=== PATIENT | female | born 1970 | race African-American/Black ===

== ENCOUNTER 2020-12-10 20:43 | Inpatient (IN) | payer BC ==
[2020-12-10] MEDS ORDERED: VALSARTAN 80 MG TABLET PO ONE (21:43)
[2020-12-10] MEDS ORDERED: NITROGLYCERIN SUBLINGUAL 1/150 0.4 MG TAB SL ONE (21:43)
[2020-12-10] MEDS ORDERED: HYDROCHLOROTHIAZIDE 50 MG TABLET PO ONE (21:43)
[2020-12-10 21:44] LABS: BASO % 0.4 % (0-2.0); EOS % 0.9 % (0-4.5); HEMATOCRIT 32.7 % (32.4-45.2); HEMOGLOBIN 10.9 GM/dL (10.7-15.3); LYMPH % 35.3 % (8-40); MCHC 33.3 g/dl (32.0-36.0); MEAN CELL VOLUME 87.1 fl (80-96); MEAN PLT VOLUME 9.1 fl (7.5-11.1); MONO % 10.7 % (3.8-10.2); NEUT % 52.7 % (42.8-82.8); PLATELET COUNT 284 10^3/uL (134-434); RBC 3.75 M/mm3 (3.60-5.2); RDW 15.7 % (11.6-15.6); WHITE BLOOD COUNT 7.1 K/mm3 (4.0-10.0)
[2020-12-10] MEDS ORDERED: HYDROCHLOROTHIAZIDE 25 MG TABLET (FP) ONE (21:48)
[2020-12-10] MEDS ORDERED: VALSARTAN 80 MG TABLET ONE (21:49)
[2020-12-10] MEDS ORDERED: NITROGLYCERIN SUBLINGUAL 1/150 0.4 MG TAB ONE (21:49)
[2020-12-10 21:52] LABS: INR 1.46 (0.83-1.09); PROTHROMBIN TIME (PATIENT) 17.5 SEC (9.7-13.0)
[2020-12-10 21:55] LABS: ACTIVATED PTT 23.6 SECONDS (25.2-36.5)
[2020-12-10 22:01] LABS: CALCIUM 8.7 mg/dL (8.5-10.1)
[2020-12-10 22:02] LABS: ALBUMIN 3.1 g/dl (3.4-5.0); BLOOD UREA NITROGEN 21.5 mg/dL (7-18)
[2020-12-10 22:05] LABS: CREATININE 1.3 mg/dL (0.55-1.3)
[2020-12-10 22:07] LABS: BILIRUBIN,TOTAL 0.8 mg/dL (0.2-1)
[2020-12-10 22:10] LABS: N-TERMINAL BNP 6707.7 pg/ml (5-125)
[2020-12-10] MEDS ORDERED: ASPIRIN 81 MG CHEWABLE TABLETS PO ONE (22:38)
[2020-12-10] MEDS ORDERED: ENOXAPARIN NA (PORCINE) 120 MG/0.8 ML DISP.SYRIN SQ SCH (22:45)
[2020-12-11] MEDS ORDERED: ASPIRIN 81 MG CHEWABLE TABLETS ONE (00:27)
[2020-12-11] MEDS ORDERED: ENOXAPARIN NA (PORCINE) 120 MG/0.8 ML DISP.SYRIN SQ ONE (00:30)
[2020-12-11 08:26] LABS: EPI CELLS 14 /uL (0-25.1); HYALINE CASTS 2 /uL (0-3.1); URINE APPEARANCE CLEAR; URINE BACTERIA 201 /uL (0-1359); URINE BILIRUBIN NEGATIVE (NEGATIVE); URINE COLOR YELLOW; URINE GLUCOSE (UA) NEGATIVE (NEGATIVE); URINE KETONE NEGATIVE (NEGATIVE); URINE LEUK ESTERASE NEGATIVE (NEGATIVE); URINE NITRITE NEGATIVE (NEGATIVE); URINE PROTEIN 3+ (NEGATIVE); URINE RBC 6 /uL (0-23.9); URINE UROBILINOGEN 0.2 mg/dL (0.2-1.0); URINE WBC 8 /uL (0-25.8)
[2020-12-11] MEDS ORDERED: FUROSEMIDE 40 MG/4 ML INJECTABLE VIAL ONE (09:01)
[2020-12-11] MEDS ORDERED: ENOXAPARIN NA (PORCINE) 120 MG/0.8 ML DISP.SYRIN SQ SCH ×2 (10:00→12:00)
[2020-12-11] MEDS ORDERED: FUROSEMIDE 40 MG/4 ML INJECTABLE VIAL IVPB SCH (10:00)
[2020-12-11] MEDS: FUROSEMIDE 40 MG/4 ML INJECTABLE VIAL IVPUSH SCH (10:05)
[2020-12-11 11:08] LABS: BASO % 0.7 % (0-2.0); EOS % 0.8 % (0-4.5); HEMATOCRIT 32.8 % (32.4-45.2); HEMOGLOBIN 10.9 GM/dL (10.7-15.3); LYMPH % 28.2 % (8-40); MCH 29.2 pg (25.7-33.7); MCHC 33.4 g/dl (32.0-36.0); MEAN CELL VOLUME 87.5 fl (80-96); MEAN PLT VOLUME 8.9 fl (7.5-11.1); MONO % 8.8 % (3.8-10.2); NEUT % 61.5 % (42.8-82.8); PLATELET COUNT 268 10^3/uL (134-434); RBC 3.75 M/mm3 (3.60-5.2); RDW 15.8 % (11.6-15.6); WHITE BLOOD COUNT 7.1 K/mm3 (4.0-10.0)
[2020-12-11] MEDS ORDERED: amLODIPine BESYLATE 5 MG TABLET (FP) PO SCH (11:30)
[2020-12-11 11:31] LABS: ALBUMIN 3.1 g/dl (3.4-5.0); CALCIUM 8.6 mg/dL (8.5-10.1)
[2020-12-11 11:32] LABS: BLOOD UREA NITROGEN 17.9 mg/dL (7-18); MAGNESIUM 1.9 mg/dL (1.8-2.4)
[2020-12-11 11:34] LABS: CREATININE 1.1 mg/dL (0.55-1.3); PHOSPHOROUS 4.5 mg/dL (2.5-4.9)
[2020-12-11] MEDS ORDERED: amLODIPine BESYLATE 5 MG TABLET (FP) ONE (13:41)
[2020-12-11] MEDS ORDERED: ENOXAPARIN NA (PORCINE) 40 MG/0.4 ML DISP.SYRIN SQ ONE (16:46)
[2020-12-11] MEDS ORDERED: ENOXAPARIN NA (PORCINE) 100 MG/1 ML DISP.SYRIN SQ ONE (17:00)
[2020-12-11] MEDS ORDERED: ENOXAPARIN NA (PORCINE) 60 MG/0.6 ML DISP.SYRIN SQ ONE (17:00)
[2020-12-11] MEDS: QUINAPRIL HCL 20 MG TABLET PO SCH (17:05)
[2020-12-11] MEDS: CHLORHEXIDINE GLUCONATE 4% CLEANSER FOR DECOLONIZATION TP SCH (21:09)
[2020-12-11] MEDS: MUPIROCIN 2% TOPICAL OINTMENT FOR DECOLONIZATION NS SCH (21:09)
[2020-12-11] MEDS ORDERED: LABETALOL HCL 5 MG/1 ML (100MG/20 ML VIAL) IVPUSH ONE ×2 (21:51→21:57)
[2020-12-12] MEDS ORDERED: QUINAPRIL HCL 20 MG TABLET PO ONE ×2 (00:23→20:06)
[2020-12-12 07:48] LABS: BASO % 0.5 % (0-2.0); EOS % 2.4 % (0-4.5); HEMATOCRIT 29.8 % (32.4-45.2); HEMOGLOBIN 9.9 GM/dL (10.7-15.3); LYMPH % 25.4 % (8-40); MCH 29.1 pg (25.7-33.7); MCHC 33.1 g/dl (32.0-36.0); MEAN PLT VOLUME 9.1 fl (7.5-11.1); MONO % 8.8 % (3.8-10.2); NEUT % 62.9 % (42.8-82.8); PLATELET COUNT 240 10^3/uL (134-434); RBC 3.39 M/mm3 (3.60-5.2); RDW 15.7 % (11.6-15.6)
[2020-12-12 07:59] LABS: INR 1.45 (0.83-1.09); PROTHROMBIN TIME (PATIENT) 17.6 SEC (9.7-13.0)
[2020-12-12 08:19] LABS: CALCIUM 8.2 mg/dL (8.5-10.1)
[2020-12-12 08:20] LABS: ALBUMIN 2.5 g/dl (3.4-5.0); BLOOD UREA NITROGEN 15.2 mg/dL (7-18); MAGNESIUM 1.7 mg/dL (1.8-2.4)
[2020-12-12 08:23] LABS: PHOSPHOROUS 4.2 mg/dL (2.5-4.9)
[2020-12-12 08:24] LABS: BILIRUBIN,TOTAL 0.9 mg/dL (0.2-1); TOT PROT 5.9 g/dl (6.4-8.2)
[2020-12-12] MEDS ORDERED: MAGNESIUM SULF 50% (8.12 MEQ/2 ML-1 GM VIAL) IVPB ONE (08:44)
[2020-12-12] MEDS ORDERED: KCL 10 MEQ IVPB 10 MEQ/100 ML INFUS.BAG IVPB SCH (09:00)
[2020-12-12] MEDS ORDERED: PT OWN MED DRAWER 7, Y5N ONE ×5 (09:17→23:17)
[2020-12-12] MEDS: MAGNESIUM OXIDE 400 MG TABLET (FP) PO SCH ×2 (09:37→23:05)
[2020-12-12] MEDS: POTASSIUM CHLORIDE TABS 20 MEQ TABLET.ER (FP) PO SCH ×2 (09:38→13:13)
[2020-12-12] MEDS: FUROSEMIDE 40 MG/4 ML INJECTABLE VIAL IVPUSH SCH (09:38)
[2020-12-12] MEDS: MUPIROCIN 2% TOPICAL OINTMENT FOR DECOLONIZATION NS SCH ×2 (09:39→23:05)
[2020-12-12] MEDS ORDERED: ENOXAPARIN NA (PORCINE) 120 MG/0.8 ML DISP.SYRIN SQ ONE ×2 (09:56→21:16)
[2020-12-12] MEDS ORDERED: ENOXAPARIN NA (PORCINE) 30 MG/0.3 ML DISP.SYRIN SQ ONE ×2 (09:57→21:16)
[2020-12-12] MEDS ORDERED: POTASSIUM CHLORIDE TABS 10 MEQ TABLET.ER (FP) PO SCH (10:00)
[2020-12-12] MEDS ORDERED: ENOXAPARIN NA (PORCINE) 120 MG/0.8 ML DISP.SYRIN SQ SCH (10:00)
[2020-12-12] MEDS: ENOXAPARIN 120 MG, ENOXAPARIN 30 MG SQ SCH ×2 (10:01→23:06)
[2020-12-12] MEDS: PANTOPRAZOLE 40 MG TABLET PO SCH ×2 (10:16→23:05)
[2020-12-12] MEDS: QUINAPRIL HCL 20 MG TABLET PO SCH (11:07)
[2020-12-12] MEDS ORDERED: CEFTRIAXONE 1 GM in DEXTROSE 5%-WATER - 50 ML IVPB ONE (11:45)
[2020-12-12] MEDS ORDERED: cefTRIAXone SODIUM 1 GM VIAL ONE (12:38)
[2020-12-12] MEDS ORDERED: DEXTROSE 5%-WATER - 50 ML IVPB ONE (12:38)
[2020-12-12] MEDS ORDERED: CEFTRIAXONE 1,000 MG in DEXTROSE 5%-WATER - 50 ML IVPB SCH (13:00)
[2020-12-12] MEDS: CEFTRIAXONE 1 GM in DEXTROSE 5%-WATER - 50 ML IVPB SCH (13:11)
[2020-12-12] MEDS ORDERED: CARVEDILOL 6.25 MG TABLET (FP) PO SCH (13:15)
[2020-12-12] MEDS ORDERED: LABETALOL HCL 5 MG/1 ML (100MG/20 ML VIAL) IVPUSH ONE ×2 (17:36→20:06)
[2020-12-12] MEDS ORDERED: POTASSIUM CHLORIDE TABS 20 MEQ TABLET.ER (FP) PO SCH (20:30)
[2020-12-12] MEDS: CHLORHEXIDINE GLUCONATE 4% CLEANSER FOR DECOLONIZATION TP SCH (23:06)
[2020-12-12] MEDS: CARVEDILOL 12.5 MG TABLET (FP) PO SCH (23:08)
[2020-12-13 07:09] LABS: BASO % 0.8 % (0-2.0); HEMATOCRIT 31.7 % (32.4-45.2); HEMOGLOBIN 10.3 GM/dL (10.7-15.3); MCH 28.6 pg (25.7-33.7); MCHC 32.4 g/dl (32.0-36.0); MEAN CELL VOLUME 88.3 fl (80-96); MEAN PLT VOLUME 9.3 fl (7.5-11.1); MONO % 10.6 % (3.8-10.2); NEUT % 50.6 % (42.8-82.8); PLATELET COUNT 273 10^3/uL (134-434); RBC 3.59 M/mm3 (3.60-5.2); RDW 16.2 % (11.6-15.6); WHITE BLOOD COUNT 5.8 K/mm3 (4.0-10.0)
[2020-12-13 07:39] LABS: ALBUMIN 2.7 g/dl (3.4-5.0); BLOOD UREA NITROGEN 9.9 mg/dL (7-18); MAGNESIUM 1.7 mg/dL (1.8-2.4)
[2020-12-13 07:42] LABS: PHOSPHOROUS 3.4 mg/dL (2.5-4.9)
[2020-12-13 07:44] LABS: BILIRUBIN,TOTAL 0.7 mg/dL (0.2-1); TOT PROT 6.2 g/dl (6.4-8.2)
[2020-12-13] MEDS ORDERED: SODIUM PHOSPHATE - 30 MM in DEXTROSE 5%-WATER - 250 ML IVPB ONE (08:00)
[2020-12-13] MEDS ORDERED: ENOXAPARIN NA (PORCINE) 120 MG/0.8 ML DISP.SYRIN SQ ONE ×2 (08:47→21:22)
[2020-12-13] MEDS ORDERED: ENOXAPARIN NA (PORCINE) 30 MG/0.3 ML DISP.SYRIN SQ ONE ×2 (08:47→21:22)
[2020-12-13] MEDS ORDERED: DEXTROSE 5%-WATER - 50 ML IVPB ONE (08:48)
[2020-12-13] MEDS ORDERED: PT OWN MED DRAWER 7, Y5N ONE ×2 (08:48→20:14)
[2020-12-13] MEDS ORDERED: cefTRIAXone SODIUM 1 GM VIAL ONE (08:48)
[2020-12-13] MEDS: MAGNESIUM OXIDE 400 MG TABLET (FP) PO SCH ×4 (08:53→20:14)
[2020-12-13] MEDS: CEFTRIAXONE 1 GM in DEXTROSE 5%-WATER - 50 ML IVPB SCH (09:04)
[2020-12-13] MEDS: ENOXAPARIN 120 MG, ENOXAPARIN 30 MG SQ SCH ×2 (09:05→21:23)
[2020-12-13] MEDS: CARVEDILOL 12.5 MG TABLET (FP) PO SCH ×2 (09:05→21:23)
[2020-12-13] MEDS: PANTOPRAZOLE 40 MG TABLET PO SCH ×2 (09:05→21:23)
[2020-12-13] MEDS: FUROSEMIDE 40 MG/4 ML INJECTABLE VIAL IVPUSH SCH (09:06)
[2020-12-13] MEDS: QUINAPRIL HCL 20 MG TABLET PO SCH (09:06)
[2020-12-13] MEDS: MUPIROCIN 2% TOPICAL OINTMENT FOR DECOLONIZATION NS SCH ×2 (09:06→21:23)
[2020-12-13] MEDS ORDERED: CEFTRIAXONE 1 GM in DEXTROSE 5%-WATER - 50 ML IVPB SCH (10:00)
[2020-12-13] MEDS: LACTOBACILLUS ACIDOPHILUS 1 TABLET PO SCH (12:30)
[2020-12-13] MEDS: SPIRONOLACTONE 25 MG TABLET PO SCH (12:31)
[2020-12-13] MEDS ORDERED: LORATADINE 10 MG TABLET PO ONE (16:01)
[2020-12-13] MEDS: FERROUS SO4 325 MG TABLET (FP) PO SCH (16:47)
[2020-12-13] MEDS ORDERED: LABETALOL HCL 5 MG/1 ML (100MG/20 ML VIAL) IVPUSH ONE (20:07)
[2020-12-13] MEDS: CHLORHEXIDINE GLUCONATE 4% CLEANSER FOR DECOLONIZATION TP SCH (21:23)
[2020-12-14] MEDS ORDERED: ENOXAPARIN NA (PORCINE) 120 MG/0.8 ML DISP.SYRIN SQ ONE (08:30)
[2020-12-14] MEDS ORDERED: ENOXAPARIN NA (PORCINE) 30 MG/0.3 ML DISP.SYRIN SQ ONE (08:30)
[2020-12-14] MEDS ORDERED: PT OWN MED DRAWER 7, Y5N ONE ×2 (08:31→14:29)
[2020-12-14] MEDS: QUINAPRIL HCL 20 MG TABLET PO SCH (09:42)
[2020-12-14] MEDS: LACTOBACILLUS ACIDOPHILUS 1 TABLET PO SCH (09:43)
[2020-12-14] MEDS: SPIRONOLACTONE 25 MG TABLET PO SCH (09:43)
[2020-12-14] MEDS: CARVEDILOL 12.5 MG TABLET (FP) PO SCH (09:45)
[2020-12-14] MEDS: FERROUS SO4 325 MG TABLET (FP) PO SCH (09:45)
[2020-12-14] MEDS: CEFTRIAXONE 1 GM in DEXTROSE 5%-WATER - 50 ML IVPB SCH (09:46)
[2020-12-14] MEDS: FUROSEMIDE 40 MG/4 ML INJECTABLE VIAL IVPUSH SCH (09:47)
[2020-12-14] MEDS: ENOXAPARIN 120 MG, ENOXAPARIN 30 MG SQ SCH (09:50)
[2020-12-14] MEDS: MUPIROCIN 2% TOPICAL OINTMENT FOR DECOLONIZATION NS SCH ×2 (09:52→21:50)
[2020-12-14] MEDS: PANTOPRAZOLE 40 MG TABLET PO SCH ×2 (10:34→21:50)
[2020-12-14] MEDS ORDERED: MAGNESIUM OXIDE 400 MG TABLET (FP) PO ONE ×2 (12:22→16:46)
[2020-12-14] MEDS ORDERED: FERROUS SO4 325 MG TABLET (FP) PO SCH (13:09)
[2020-12-14] MEDS: LORATADINE 10 MG TABLET PO SCH (13:27)
[2020-12-14] MEDS: DOXYCYCLINE HYCLATE 100 MG CAPSULE PO SCH ×2 (14:39→19:50)
[2020-12-14] MEDS ORDERED: CARVEDILOL 12.5 MG TABLET (FP) PO ONE ×2 (14:57→22:00)
[2020-12-14 16:03] LABS: BASO % 1.7 % (0-2.0); EOS % 3.7 % (0-4.5); HEMOGLOBIN 10.8 GM/dL (10.7-15.3); LYMPH % 34.4 % (8-40); MCH 28.2 pg (25.7-33.7); MCHC 32.6 g/dl (32.0-36.0); MEAN CELL VOLUME 86.6 fl (80-96); MEAN PLT VOLUME 8.3 fl (7.5-11.1); MONO % 12.1 % (3.8-10.2); NEUT % 48.1 % (42.8-82.8); PLATELET COUNT 317 10^3/uL (134-434); RBC 3.82 M/mm3 (3.60-5.2); WHITE BLOOD COUNT 5.3 K/mm3 (4.0-10.0)
[2020-12-14 16:25] LABS: CALCIUM 8.5 mg/dL (8.5-10.1)
[2020-12-14 16:26] LABS: MAGNESIUM 1.6 mg/dL (1.8-2.4)
[2020-12-14 16:28] LABS: CREATININE 1.1 mg/dL (0.55-1.3); PHOSPHOROUS 2.6 mg/dL (2.5-4.9)
[2020-12-14] MEDS ORDERED: hydrALAZINE HCL 25 MG TABLET (FP) PO ONE (17:34)
[2020-12-14] MEDS ORDERED: POTASSIUM CHLORIDE TABS 20 MEQ TABLET.ER (FP) PO ONE (18:01)
[2020-12-14] MEDS ORDERED: MAGNESIUM SULF 50% (8.12 MEQ/2 ML-1 GM VIAL) IVPB ONE (18:01)
[2020-12-14] MEDS: CHLORHEXIDINE GLUCONATE 4% CLEANSER FOR DECOLONIZATION TP SCH (21:50)
[2020-12-14] MEDS: APIXABAN 5 MG TABLET PO SCH (21:50)
[2020-12-14] MEDS ORDERED: hydrALAZINE HCL 25 MG TABLET (FP) PO SCH (22:00)
[2020-12-15] MEDS ORDERED: CARVEDILOL 12.5 MG TABLET (FP) PO SCH (06:00)
[2020-12-15 06:31] LABS: HEMATOCRIT 32.9 % (32.4-45.2); HEMOGLOBIN 10.8 GM/dL (10.7-15.3); MCH 28.7 pg (25.7-33.7); MCHC 32.7 g/dl (32.0-36.0); MEAN CELL VOLUME 87.9 fl (80-96); MEAN PLT VOLUME 8.6 fl (7.5-11.1); PLATELET COUNT 281 10^3/uL (134-434); RBC 3.74 M/mm3 (3.60-5.2); RDW 16.2 % (11.6-15.6); WHITE BLOOD COUNT 4.5 K/mm3 (4.0-10.0)
[2020-12-15 07:05] LABS: ALBUMIN 2.7 g/dl (3.4-5.0); CALCIUM 8.2 mg/dL (8.5-10.1)
[2020-12-15 07:06] LABS: BLOOD UREA NITROGEN 9.8 mg/dL (7-18); MAGNESIUM 1.9 mg/dL (1.8-2.4)
[2020-12-15 07:08] LABS: PHOSPHOROUS 3.4 mg/dL (2.5-4.9)
[2020-12-15 07:11] LABS: BILIRUBIN,TOTAL 0.6 mg/dL (0.2-1); TOT PROT 6.2 g/dl (6.4-8.2)
[2020-12-15] MEDS ORDERED: PT OWN MED DRAWER 7, Y5N ONE ×2 (09:04→09:21)
[2020-12-15] MEDS ORDERED: DEXTROSE 5%-WATER - 50 ML IVPB ONE (09:04)
[2020-12-15] MEDS ORDERED: cefTRIAXone SODIUM 1 GM VIAL ONE (09:04)
[2020-12-15] MEDS: SPIRONOLACTONE 25 MG TABLET PO SCH (09:17)
[2020-12-15] MEDS: APIXABAN 5 MG TABLET PO SCH (09:18)
[2020-12-15] MEDS: FUROSEMIDE 40 MG/4 ML INJECTABLE VIAL IVPUSH SCH (09:18)
[2020-12-15] MEDS: LACTOBACILLUS ACIDOPHILUS 1 TABLET PO SCH (09:18)
[2020-12-15] MEDS: LORATADINE 10 MG TABLET PO SCH (09:18)
[2020-12-15] MEDS: CEFTRIAXONE 1 GM in DEXTROSE 5%-WATER - 50 ML IVPB SCH (09:19)
[2020-12-15] MEDS: PANTOPRAZOLE 40 MG TABLET PO SCH (09:19)
[2020-12-15] MEDS: DOXYCYCLINE HYCLATE 100 MG CAPSULE PO SCH (09:22)
[2020-12-15] MEDS: MUPIROCIN 2% TOPICAL OINTMENT FOR DECOLONIZATION NS SCH (09:23)
[2020-12-15] MEDS ORDERED: CARVEDILOL 25 MG TABLET (FP) PO SCH (10:00)
[2020-12-15] MEDS ORDERED: hydrALAZINE HCL 25 MG TABLET (FP) PO SCH (10:00)
[2020-12-15] MEDS ORDERED: VALSARTAN 160 MG TABLET PO SCH (10:00)
[2020-12-15 11:05] VITALS: TEMP 98.6
[2020-12-15 11:18] LABS: VENOUS BASE EXCESS 6.1 mmol/L (-2-2); VENOUS O2 SATURATION 84.1 % (70-80); VENOUS PCO2 45.1 mmHg (38-52); VENOUS PH 7.452 (7.310-7.410)
[2020-12-15 11:30] VITALS: BMI 58.0
[2020-12-15 15:12] VITALS: BP 171/108; PULSE 77
[2020-12-15] MEDS ORDERED: PANTOPRAZOLE 40 MG TABLET PO SCH (22:00)
[2020-12-16] MEDS ORDERED: CEFTRIAXONE 1 GM in DEXTROSE 5%-WATER - 50 ML IVPB SCH (10:00)
[2020-12-16] MEDS ORDERED: FUROSEMIDE 40 MG/4 ML INJECTABLE VIAL IVPUSH SCH (10:00)
[2020-12-16] MEDS ORDERED: SPIRONOLACTONE 25 MG TABLET PO SCH (10:00)
[2020-12-16] MEDS ORDERED: LACTOBACILLUS ACIDOPHILUS 1 TABLET PO SCH (10:00)
== END 2020-12-15 15:15 | disposition home or self-care (01) | DRG 175 ==
LOC: JER 20:43 → JERBED 12-11 00:53 → JICU 12-11 19:15
PROVIDERS: ADMIT Internal Medicine; ATTEND Internal Medicine
DX: I26.99 Other pulmonary embolism without acute cor pulmonale (principal); I50.21 Acute systolic (congestive) heart failure; J18.9 Pneumonia, unspecified organism; Z68.43 Body mass index [BMI] 50.0-59.9, adult; I42.0 Dilated cardiomyopathy; I24.8 Other forms of acute ischemic heart disease; E66.01 Morbid (severe) obesity due to excess calories; I11.0 Hypertensive heart disease with heart failure; K76.0 Fatty (change of) liver, not elsewhere classified; E87.6 Hypokalemia; E83.39 Other disorders of phosphorus metabolism; I27.20 Pulmonary hypertension, unspecified; R74.01 Elevation of levels of liver transaminase levels; D64.9 Anemia, unspecified; R31.29 Other microscopic hematuria
CPT/HCPCS: 36415; 71045-TC-FY; 71275-TC; 76705-TC; 80048; 80053; 80061; 81003; 82150; 82550; 82553; 82728; 82803; 82962; 83021; 83036; 83540; 83550; 83605; 83690; 83735; 83880; 84100; 84436; 84443; 84479; 84484; 85025; 85027; 85379; 85610; 85660; 85730; 86705; 86706; 86709; 87040; 87070; 87086; 87205; 87340; 87517; 87522; 87899; 93005; 93010; 93306-TC; 93971-TC; 99285-25; C9803; Q9967; U0003; U0005

== ENCOUNTER 2021-07-04 01:32 | Observation (INO) | payer BC ==
[2021-07-04 01:47] VITALS: BMI 51.5
[2021-07-04 02:41] LABS: EPI CELLS 3 /uL (0-25.1); HYALINE CASTS 0 /uL (0-3.1); PH,URINE 7.5 (5.0-8.0); URINE APPEARANCE CLEAR; URINE BACTERIA 22 /uL (0-1359); URINE BILIRUBIN NEGATIVE (NEGATIVE); URINE COLOR YELLOW; URINE GLUCOSE (UA) NEGATIVE (NEGATIVE); URINE KETONE NEGATIVE (NEGATIVE); URINE LEUK ESTERASE NEGATIVE (NEGATIVE); URINE NITRITE NEGATIVE (NEGATIVE); URINE PROTEIN 1+ (NEGATIVE); URINE RBC 14 /uL (0-23.9); URINE UROBILINOGEN 0.2 mg/dL (0.2-1.0); URINE WBC 2 /uL (0-25.8)
[2021-07-04 02:43] LABS: BASO % 1.2 % (0-2.0); EOS % 2.5 % (0-4.5); HEMATOCRIT 31.5 % (32.4-45.2); HEMOGLOBIN 10.5 GM/dL (10.7-15.3); MCH 29.9 pg (25.7-33.7); MCHC 33.3 g/dl (32.0-36.0); MEAN CELL VOLUME 89.8 fl (80-96); MEAN PLT VOLUME 8.2 fl (7.5-11.1); MONO % 9.1 % (3.8-10.2); NEUT % 40.2 % (42.8-82.8); PLATELET COUNT 242 10^3/uL (134-434); RBC 3.51 M/mm3 (3.60-5.2); RDW 15.1 % (11.6-15.6); WHITE BLOOD COUNT 6.3 K/mm3 (4.0-10.0)
[2021-07-04 03:04] LABS: CALCIUM 8.5 mg/dL (8.5-10.1)
[2021-07-04 03:05] LABS: ALBUMIN 3.2 g/dl (3.4-5.0); BLOOD UREA NITROGEN 19.6 mg/dL (7-18)
[2021-07-04 03:10] LABS: BILIRUBIN,TOTAL 0.2 mg/dL (0.2-1); TOT PROT 7.1 g/dl (6.4-8.2)
[2021-07-04] MEDS ORDERED: FUROSEMIDE 40 MG/4 ML INJECTABLE VIAL IVPUSH ONE (04:05)
[2021-07-04] MEDS ORDERED: FUROSEMIDE 40 MG/4 ML INJECTABLE VIAL ONE (04:12)
[2021-07-04] MEDS ORDERED: ACETAMINOPHEN 325 MG TABLET (FP) PO PRN (04:28)
[2021-07-04] MEDS ORDERED: POLYETHYLENE GLYCOL (HEALTHYLAX) 3350 17 GM PACKET PO PRN (04:28)
[2021-07-04 05:19] LABS: N-TERMINAL BNP 1100.2 pg/ml (5-125)
[2021-07-04] MEDS ORDERED: CARVEDILOL 25 MG TABLET (FP) PO ONE (05:51)
[2021-07-04] MEDS ORDERED: CARVEDILOL 25 MG TABLET (FP) ONE ×2 (06:14→08:39)
[2021-07-04 07:52] LABS: MAGNESIUM 2.1 mg/dL (1.8-2.4)
[2021-07-04 07:56] LABS: PHOSPHOROUS 2.3 mg/dL (2.5-4.9)
[2021-07-04] MEDS ORDERED: FERROUS SO4 325 MG TABLET (FP) ONE (07:59)
[2021-07-04] MEDS ORDERED: FERROUS SO4 325 MG TABLET (FP) PO SCH (08:00)
[2021-07-04] MEDS ORDERED: FUROSEMIDE 40 MG TABLET (FP) ONE (08:38)
[2021-07-04] MEDS ORDERED: SPIRONOLACTONE 25 MG TABLET ONE (08:38)
[2021-07-04] MEDS ORDERED: APIXABAN 5 MG TABLET ONE (08:38)
[2021-07-04] MEDS ORDERED: hydrALAZINE HCL 25 MG TABLET (FP) ONE (08:38)
[2021-07-04] MEDS ORDERED: hydrALAZINE HCL 25 MG TABLET (FP) PO SCH (10:00)
[2021-07-04] MEDS ORDERED: FUROSEMIDE 40 MG TABLET (FP) PO SCH (10:00)
[2021-07-04] MEDS ORDERED: APIXABAN 5 MG TABLET PO SCH (10:00)
[2021-07-04] MEDS ORDERED: CARVEDILOL 25 MG TABLET (FP) PO SCH (10:00)
[2021-07-04] MEDS ORDERED: SPIRONOLACTONE 25 MG TABLET PO SCH (10:00)
[2021-07-04] MEDS ORDERED: SACUBITRIL/VALSARTAN 49 MG-51 MG TABLET PO SCH (10:00)
[2021-07-04 13:49] VITALS: BP 136/75; PULSE 76; TEMP 98
== END 2021-07-04 19:56 | disposition home or self-care (01) ==
LOC: JER 01:32 → JERBED 03:42
PROVIDERS: ADMIT Hospitalist; ATTEND Internal Medicine
PROC: 3E023GC Introduction of Other Therapeutic Substance into Muscle, Percutaneous Approach (ICD-10-PCS; principal; 2021-07-04)
DX: I11.0 Hypertensive heart disease with heart failure (principal); I50.20 Unspecified systolic (congestive) heart failure; D64.9 Anemia, unspecified; I42.0 Dilated cardiomyopathy; E66.01 Morbid (severe) obesity due to excess calories; I50.9 Heart failure, unspecified; I34.0 Nonrheumatic mitral (valve) insufficiency; R05.9 Cough, unspecified; Z68.43 Body mass index [BMI] 50.0-59.9, adult; R77.8 Other specified abnormalities of plasma proteins; Z86.711 Personal history of pulmonary embolism
CPT/HCPCS: 36415; 71045-TC-FY; 80053; 81003; 83735; 83880; 84100; 84484; 85025; 87086; 93005; 93010; 96374; 99285-25; C9803-CS; G0378; U0003; U0005